=== PATIENT | female | born 1975 | race Caucasian/White ===

== ENCOUNTER 2018-01-28 08:14 | Emergency (ER) | payer BC, OTHER ==
--- OUTSIDE RECORDS SUMMARY | 2018-01-28 08:26 | XMS REPORT | Continuity of Care Document ---
:1975 Author Organization [facility] Care Team Providers Name Role Phone LORIE EDDY Admitting Physician LORIE EDDY Attending Physician THOM RAINEY Primary Care Physician Allergies and Intolerances Code Code Allergy Type Reaction Severity Start End Status System Substance Date Date 7986 RXNorm Penicillins Drug ANAPHYLAXIS Severe 10/01/18 Active allergy 76 (disorder) 4053 RXNorm Erythromycin Drug ANAPHYLAXIS Severe 10/01/18 Active Base allergy 76 (disorder) 4894235 RXNorm coconut Food hives / rash Moderate 10/01/18 Active allergy 76 (disorder) Medications RxNorm Medication Dose Route Instructions Start End Status Date Date 789575 Acetaminophen 325 1 tab oral orally every 8 11/27/19 Active MG / Hydrocodone hours as 18 Bitartrate 5 MG needed. ( Oral Tablet MDD=4 TABS) 435 Albuterol 2 puff Inhalation inhaled every 4 Active hours as needed. 7540834 Atropine Sulfate 1 tab oral orally 3 times Active 0.025 MG / per day as Diphenoxylate needed. Hydrochloride 2.5 MG Oral Tablet 611851 Clindamycin 300 MG 300 mg oral orally 4 times Active Oral Capsule per day (10 days) (FOR 10 DAYS) Cyclobenzaprine 10 mg oral orally 3 times Active Oral per day as needed. 35487 ferrous sulfate 324 mg oral orally 2 times Active per day 91752 gabapentin 300 mg oral orally 3 times Active per day 592810 Ibuprofen 600 MG 600 mg oral orally every 6 Active Oral Tablet hours as needed. (15 days) (/fever) 008616 Metoclopramide 10 10 mg oral orally 3 times Active MG Oral Tablet per day (administer 30 minutes before meals) 395289 pantoprazole 40 MG 40 mg oral orally every Active Delayed Release day Oral Tablet Ranitidine Oral 300 mg oral orally every Active day 086532 Sucralfate 100 1 g oral orally 3 times Active MG/ML Oral per day Suspension 19760214 Fluconazole 150 MG 150 mg oral orally once (1 Completed Oral Tablet days) 19820809 Sulfamethoxazole 1 tab oral orally 2 times Completed 800 MG / per day (7 Trimethoprim 160 MG days) Oral Tablet Problems Code Code System Problem Name Start Date End Date Status gastric sleeve 07/2014 U Active 68272954 SNOMED-CT Sleep apnea 06/12/2014 Active Knee surgery x 2 2004 U Active Bilateral tubal sterilization 2005 U Active LEEP 2003 U Active 515083123 SNOMED-CT Gastroesophageal reflux disease U Active 16371682 SNOMED-CT Kidney stone U Active 643138299 SNOMED-CT Asthma U Active 73274106 SNOMED-CT Bronchitis U Active 8764456 SNOMED-CT Arthritis U Active Procedures Code Code System Procedure Date LT KNEE SURGERY [address] Bilateral ligation and division of fallopian tubes 2004 Results Microbiology Results w Susceptibilities Order: CULTURE MRSA SCREEN Specimen Source: Swab Body Site: NasalCultural Observations: Staphylococcus aureus, methicillin resistant (MRSA) was NOT isolated.1Performing Lab Footnotes:[facility] - [id number] [place] [address] KIKE MARCANO Order: CULTURE URINE Specimen Source: Urine Body Site: Urine specimen collection, clean catchCultural Observations:Rare colonies of Mixed growth consistent with vaginal jason [id number] Lab Footnotes:[facility] - [id number] [place] [address] KIKE MARCANO Social History Code Code System Social History Observation Description Dates Observed 406860691 SNOMED CT Current Smoking Status Never smoker UNK AdministrativeGender Sex Assigned At Unknown Vital Signs Code Code System Vitals Value Date 8310-5 LOINC Body Temperature 97.1 [degF] 06/14/2017 8865-8 LOINC Pulse Rate 73 {beats}/min 06/14/2017 9279-1 LOINC Respiratory Rate 18 /min 06/14/2017 60434-0 LOINC O2% BldC Oximetry 99 % 06/14/2017 8480-6 LOINC BP Systolic 124 mm[Hg] 06/14/2017 8462-4 LOINC BP Diastolic 79 mm[Hg] 06/14/2017 8302-2 LOINC Height 67 [in_i] 06/14/2017 99255-4 LOINC Weight 84.09 kg 06/14/2017 3140-1 LOINC Body surface area Derived from formula 1.96 m2 06/14/2017 66339-7 LOINC BMI (Body Mass Index) 29 kg/m2 06/14/2017 Goals Section No data in the system Health Concerns No data in the systemEncounter Diagnosis Date Code Code System Diagnosis Status J06.9 ICD10 ACUTE UP RESPIRATORY INFECTION UNS Active Advance Directives *RHIO - CONSENT IS YES Directive Type Effective Date Cushion Maker Notes Supporting Document Name Address Phone No Directive Type 06/02/2016 Not Specified Not Specified Not Specified None No specified 10:01:34 AM HEALTH CARE PROXY Directive Type Effective Date Cushion Maker Notes Supporting Document Name Address Phone No Directive 06/04/2016 Not Specified Not Specified Not Specified Lala Ndiaye No Type specified 9:30:00 AM Family History Family History Unknown Functional Status Code Functional Condition Code System Date Status Obese SNOMED CT 06/14/2017 Active Independent adls SNOMED CT 06/14/2017 Active Appears well nourished/hydrated SNOMED CT 06/14/2017 Active Immunizations Vaccine Code Code System Vaccine Name Date Status UTD Completed LAST TETANUS 2010 Completed Medical Equipment Implants Implanted Date Implant Site SHAWN 06/12/2014 seamguard abdomen Mental Status Code Cognitive Condition Code System Date Status Oriented x [address] 06/14/2017 Active Moves all extremities SNOMED CT 06/14/2017 Active No acute distress SNOMED CT 06/14/[address] 06/14/2017 Active Assessment and Plan Assessments No data in the systemPlan Of Treatment No data in the systemPending Tests Test Start Date Point of Care /URINE 06/14/2017 Point of Care URINE DIPSTICK 06/14/2017 Hospital Discharge Instructions No data in the system Reason for Visit Reason for Visit Earache
[2018-01-28] MEDS ORDERED: Ketorolac INJ* 30 MG/ML 1 ML VIAL IM ONE (09:05)
--- NOTE | 2018-01-28 09:13 | UC ---
Back Pain HPI - HPI Summary HPI Summary: This patient is a 42 year old F presenting to [facility] with a chief complaint of lower lumbar back pain since 2 days ago. The patient rates the pain 8/10 in severity. Symptoms aggravated by ice. Symptoms alleviated by heat. Patient reports foot drop gait in L foot, and numbess/tingling down left buttock L leg. Patient denies head trauma and incontinence. Pt has had sciatica in the past with with "exact same thing. " Pt states she tripped and fell fell twice and hurt her R lower stovall. n oopen wound. Patient has had no relief from taking Flexeril. She has taken some ibuprofen for the pain. but no analgesia today. Pt has not called her PCP and has continued to work this week. Pt is here mostly related to pain in right stovall. She reports that a previous MRI from a couple years ago of her back showed pinched sciatica. Pt's medication reviewed isop reviewed - History of Current Complaint Chief Complaint: UCBackPain Stated Complaint: BACK/LEG INJURY Time Seen by Provider: 01/28/18 08:39 Hx Obtained From: Patient Hx Last Menstrual Period: 01/15/18 Onset/Duration: Sudden Onset, Lasting Days - 2 days ago, Still Present Timing: Lasting Days - 2 days Severity Initially: Severe Severity Currently: Severe Pain Intensity: 8 Pain Scale Used: 0-10 Numeric Back Pain: Radiates To - L leg Aggravating Factor(s): Other - Cold Alleviating Factor(s): Heat - Allergies/Home Medications Allergies/Adverse Reactions: Allergies Allergy/AdvReac Type Severity Reaction Status Date / Time Penicillins Allergy Severe Anaphylatic Verified 01/28/18 08:38 Shock coconut Allergy Intermediate Rash Verified 01/28/18 08:38 erythromycin base Allergy Anaphylatic Verified 01/28/18 08:38 Shock Home Medications: Home Medications Cyclobenzaprine TAB* [Flexeril 10 MG TAB*] 10 mg PO BID PRN 01/28/18 [History Confirmed 01/28/18] LORazepam [Ativan] 0.5 mg PO SEE INSTRUCTIONS 01/28/18 [History Confirmed ] Pantoprazole TAB (NF) [Protonix TAB (NF)] 40 mg PO BID 01/28/18 [History Confirmed 01/28/18] Sucralfate SUSP (NF) [Carafate SUSP (NF)] 1 gm PO TID 01/28/18 [History Confirmed 01/28/18] raNITIdine HCl [Ranitidine HCl] 300 mg PO DAILY WITH MEAL 01/28/18 [History Confirmed 01/28/18] PMH/Surg Hx/FS Hx/Imm Hx Previously Healthy: Yes Neurological History: Other Other Neurological History: Pinched sciatic nerve - Surgical History Surgical History: Yes Surgery Procedure, Year, and Place: gastric sleeve 2012. orthoscopic left knee 1991, 2004. ablasion 2014. mass in groin removed. cervical surgery - Family History Known Family History: Positive: Other - Cancer - Social History Occupation: Employed Full-time Alcohol Use: Occasionally Substance Use Type: None Smoking Status (MU): Light Every Day Tobacco Smoker Review of Systems Skin: Bruising - right stovall Genitourinary: Other - Denies incontinence Musculoskeletal: Other: - Lower lumbar back pain radiating to L leg. R lower stovall pain. Neurological: Numbness - L leg, Other - Foot drop gait in L foot. Denies head trauma. All Other Systems Reviewed And Are Negative: Yes Physical Exam - Summary Physical Exam Summary: Vital Signs Reviewed: Yes A+Ox3, no distress Pt able to stand, step up to exam table unassisted stepping with left foot, pivoted on right without difficulty Eyes: Conjunctiva Clear, KANE. EOM intact and full ENT: Hearing grossly normal TM x 2 clear, mmoist, uvula midline, no exudate, no erythema Neck: Positive: Supple Respiratory: Positive: No respiratory distress, No accessory muscle use + CTA throughout no w/r Cardiovascular: RRR nl s1, s2 no m/r CBT <2 sec abd soft + BS nt/nd no guarding, no distension Musculoskeletal Exam: no spinous process pain c/t/l/s mild TTP left buttock + SLE b/l + flex/ext knee b/l with mild dsicomfort left buttock + abduct, adduct + flex/ext ankles + great toe extension, Neurological: Positive: Alert, + sensation throughout 2+ patellar achilles b/l + great toe extension Psychological: Positive: Normal Response To Family Skin: Positive: no rash, right stovall - 2 quater sized area ecchymosis no abraison Triage Information Reviewed: Yes Vital Signs: Initial Vital Signs Temp 97.5 F 01/28/18 08:27 Pulse 55 01/28/18 08:27 Resp 18 01/28/18 08:27 BP 125/78 01/28/18 08:27 Pulse Ox 99 01/28/18 08:27 Vital Signs Reviewed: Yes Diagnostics - Radiology LE X-Ray Radiology Interpretation Completed By: Radiologist - 09:37. SOFT TISSUE SWELLING. NO ACUTE OSSEOUS INJURY. IF SYMPTOMS PERSIST, RECOMMEND REPEAT IMAGING. Physician has reviewed this imaging report. Re-Evaluation - Re-Evaluation 1 Re-Evaluation Time: 09:45 Comment: Patient declined crutches because she has a walker at home. pt imaging reviewed. recommend motrin/apap. medrol dose pack. pcp call for f/u. work note. strict return precautions Back Pain Course/Dx - Course Course Of Treatment: pt with left buttock and LLE pain s/p mechanical fall. pt reports partesthsia intermittent left foot with some weakness of left foot which has occurred in past. right stovall pain s/p fall and contusion. will give toradol. ice. imaging - Differential Dx/Diagnosis Provider Diagnoses: left sided sciatica. right le contusion Discharge - Sign-Out/Discharge Documenting (check all that apply): Patient Departure - D/C All imaging exams completed and their final reports reviewed: Yes - Discharge Plan Condition: Stable Disposition: HOME Prescriptions: methylPREDNISolone [Medrol Dosepak 4 MG*] 4 mg PO .SEE IRASEMA INSTRUCTION #1 tab Patient Education Materials: Sciatica (ED), Contusion in Adults (ED) Forms: *Work Release Referrals: Esvin PEÑA,Gloria Casanova [Primary Care Provider] - Additional Instructions: - Okay to alternate ibuprofen (Advil, Motrin) and tylenol every 3 hours for pain. Take with food. Do NOT take for more than 4-5 days -Take flexeril a previously presscribed. This medication may cause drowsiness - do not drive, operate machinery or drink alcohol while taking this medications - Apply heat to your back - slow gentle stretching exercises are important - once your muscles are warm, slow gentle stretching exercises are important - Take prednisone as prescribed until gone - for your right stovall - apply ice (wrapped in a towel) 2-3 times a day - wear shoes with good foot and ankle support - contact your doctor today to schedule a follow-up appointment - contact your doctor or go to the emergency department for uncontrolled pain, worsening symptoms or any other questions or concerns - Billing Disposition and Condition Condition: STABLE Disposition: Home - Attestation Statements Document Initiated by Scribe: Yes Documenting Scribe: Aneudy Lagos Provider For Whom Georgiibe is Documenting (Include Credential): Shreya Catalan MD Scribe Attestation: Aneudy Frazier, scribed for Shreya Catalan MD on 01/29/18 at 0951. Scribe Documentation Reviewed: Yes Provider Attestation: The documentation as recorded by the Aneudy espitia accurately reflects the service I personally performed and the decisions made by me, Shreya Catalan MD
--- NOTE | 2018-01-28 09:41 | RAD ---
HISTORY: fall - pain mid-anterior stovall COMPARISONS: None VIEWS: 3 , Frontal and lateral views of the right foreleg FINDINGS: BONE DENSITY: Normal. BONES: There is no displaced fracture. JOINTS: There is no arthropathy. ALIGNMENT: There is no dislocation. SOFT TISSUES: There is mild soft tissue swelling along the anterior distal foreleg. OTHER FINDINGS: None. IMPRESSION: SOFT TISSUE SWELLING. NO ACUTE OSSEOUS INJURY. IF SYMPTOMS PERSIST, RECOMMEND REPEAT IMAGING.
== END 2018-01-28 09:50 | disposition home or self-care (01) ==
LOC: UCEAST 08:14
DX: M54.32 Sciatica, left side (principal); S90.31XA Contusion of right foot, initial encounter; M54.5 Low back pain; Z88.0 Allergy status to penicillin; Z91.018 Allergy to other foods; Z88.1 Allergy status to other antibiotic agents; F17.200 Nicotine dependence, unspecified, uncomplicated; W01.0XXA Fall on same level from slipping, tripping and stumbling without subsequent striking against object, initial encounter; Y92.9 Unspecified place or not applicable
CPT/HCPCS: 96372; 99202; G0463; J1885